=== PATIENT | male | born 1980 | race Caucasian/White ===

== ENCOUNTER 2023-10-28 17:47 | Emergency (ER) | payer SELFPAY ==
[2023-10-28 17:56] VITALS: BP 196/122; PULSE 92; RESP 17; TEMP 36.8; O2SAT 98; BMI 25.0
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
[2023-10-28] MEDS: naproxen 500 mg Tablet PO (18:32)
[2023-10-28 19:43] VITALS: BP 154/99; PULSE 86; RESP 16; TEMP 36.8; O2SAT 99
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
== END 2023-10-28 19:42 | disposition home or self-care (01) ==
PROVIDERS: Emergency Provider Physician Assistant
DX: S52.124A Nondisplaced fracture of head of right radius, initial encounter for closed fracture (principal); S50.311A Abrasion of right elbow, initial encounter; V28.49XA Other motorcycle driver injured in noncollision transport accident in traffic accident, initial encounter
CPT/HCPCS: 73080; 73110; 99283